=== PATIENT | male | born 1955 | race Caucasian/White ===

== ENCOUNTER 2019-06-01 20:10 | Observation (INO) ==
[2019-06-01] MEDS ORDERED: Sodium Chloride 0.9% 1,000 ML PRIMARY IV ONE (20:26)
[2019-06-01] MEDS ORDERED: ASPIRIN 81 MG (BABY) CHEWABLE TABLET PO ONE (20:26)
--- NOTE | 2019-06-01 20:29 | EKG ---
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
[2019-06-01 20:35] LABS: BASOPHILS # (AUTO) 0.04 10*3/UL; BASOPHILS % (AUTO) 0.3 % (0-1); EOSINOPHILS # (AUTO) 0.21 10*3/UL; EOSINOPHILS % (AUTO) 1.6 % (0-8); Hematocrit [HCT] 40.5 % (42.0-52.0); Hemoglobin [HGB] 13.8 g/dL (14.0-18.0); LYMPHOCYTES # (AUTO) 2.05 10*3/uL; MEAN CORPUSCULAR HGB CONC 34.1 g/dL (33-37); MEAN CORPUSCULAR VOLUME 91.8 FL (80-90); MEAN PLATELET VOLUME 8.5 FL (7.4-12.2); MONOCYTES # (AUTO) 1.08 10*3/UL (0.3-0.8); MONOCYTES % (AUTO) 8.4 % (5-15); NEUTROPHILS # (AUTO) 9.43 10*3/UL; NEUTROPHILS % (AUTO) 72.9 % (50-80); PLATELET MORPHOLOGY COMMENT NORMAL MORPHOLOGY (NORM); RBC MORPHOLOGY COMMENT NORMAL MORPHOLOGY (NORM); RED BLOOD COUNT 4.41 10^6/uL (4.70-6.10); WBC MORPHOLOGY COMMENT NORMAL MORPHOLOGY (NORM)
[2019-06-01] MEDS: NITROGLYCERIN 0.4 MG SL TAB (BOTTLE OF 3) SL PRN ×2 (20:35→20:53)
[2019-06-01 20:40] LABS: BLOOD UREA NITROGEN 17 mg/dL (7-22); BUN/CREATININE RATIO 18.88 (6-20); SERUM ALBUMIN 4.7 g/dL (3.5-4.8)
[2019-06-01 22:10] LABS: VENOUS PCO2 39.3 mmHg (45-55); VENOUS PH 7.41 (7.32-7.42)
[2019-06-01] MEDS ORDERED: LIDOCAINE W/ SODIUM BICARB 0.5 ML SYR SUBD PRN (22:23)
[2019-06-01] MEDS ORDERED: CALCIUM CARBONATE 500 MG (TUMS) CHEWABLE TABLET PO PRN (22:23)
[2019-06-01] MEDS ORDERED: NITROGLYCERIN 0.4 MG SL TAB (BOTTLE OF 3) SL PRN (22:23)
--- NOTE | 2019-06-01 23:05 | PDOC ---
HPI - History of Present Illness Date of Service: 06/01/19 Time of Service: 22:58 Chief Complaint: Chest pain History of Present Illness: Very pleasant 63-year-old male with obesity, known coronary artery disease status post stent about a year and a half ago with myocardial infarction, hypertension, who states that he developed chest pain earlier today in [facility]. 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 He lifted another one and felt short of breath and then went to sit in his cab and he felt a little better. He develops sharp chest pain at that time and it was substernal in nature. At first he thought it might be related to a tooth that he thinks is bad in his mouth but he was planning on doing with that in June. He states that that tooth pain has been sometimes radiating into his neck and he thought the pain might be coming into his chest. As he was driving back towards [place], the pain persisted and it was bad enough that he thought maybe it could be something else became in for evaluation. He was given 2 doses of nitroglycerin and his pain has improved but has not completely relieved. Initial EKG showed a left bundle branch block with T-wave inversions. I am told that there are some records from the patient's [facility] in [place], [place], where he had a stent placed, but I do not have those available for review. Apparently hi s EKG was unchanged per my discussion with the emergency room physician, but again those records have not been provided to me. His initial troponin was negative. Despite a normal d-dimer, the patient has high to intermediate risk for pulmonary emboli by risk stratification score sent a CT scan of the chest was not done in the emergency room. He states his felt short of breath. He states he was not quite diaphoretic with this like he was with his first heart attack. No nausea or vomiting. He does have hypertension, he does not smoke. Has positive family history for heart disease, he does not know his cholesterol status, and he does not have diabetes. Incidentally, the patient also states to me that he's had some swelling in his lower extremities over the past couple of months which he is attributing to dependent edema as his legs seem to be less swollen when he props them up at night. The edema seems to get worse when he is driving truck. He notices blood pressures were elevated in the 190s systolic in [place], [place]. He apparently had some word finding problems as well and was repetitive according to his daughter. He denied any facial droop or weakness on one side or the other. Past Medical History Medical History: 1. Obesity. 2. Hypertension. 3. Coronary artery disease status post stent with myocardial infarction in February 2018. 4. Surgical History: 1. Tonsillectomy. 2. Appendectomy. 3. Stent in heart Past Social History: Does not smoke. Has 6 children. Lives in [place], [place]. 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 Drinks alcohol when he is not driving. Tobacco Use: Never Smoker Do you dip or chew tobacco: Yes In the Past 12 Months, Have Used or Abuse Any of the Following Substance: None Alcohol Use: Occasionally Medication / Allergies Home Medications: Home Medications Medication Instructions Recorded Confirmed Amlodipine Besylate 10 mg PO DAILY 06/01/19 06/01/19 Aspirin [Aspir 81] 81 mg PO DAILY 06/01/19 06/01/19 Carvedilol 6.25 mg PO BID 06/01/19 06/01/19 Lisinopril 20 mg PO DAILY 06/01/19 06/01/19 Spironolactone 25 mg PO DAILY 06/01/19 06/01/19 Allergies/Adverse Reactions: Allergies Allergy/AdvReac Type Severity Reaction Status Date / Time No Known Allergies Allergy Verified 06/01/19 22:33 Review of Systems - Review of Systems All Systems: Reviewed & No Additional Complaints Except as Stated (I did a 12 point review systems and it was negative other than that discussed below and in the history of present illness.) - Constitutional Constitutional: REPORTS: Weight Gain (Has gained about 25 pounds in the last year and a half.) - Respiratory Respiratory: REPORTS: Dyspnea with Exertion, Pleuritic Pain - Cardiovascular Cardiovascular: REPORTS: See HPI - Musculoskeletal Musculoskeletal: REPORTS: Other (Has chronic wrist pain that he attributes to possible carpal tunnel syndrome. Also stated he had about a 5 month history of right shoulder pain attributed to moving cattle) Exam - Vitals Vital Signs: Vital Signs Temperature 97.7 F Temperature Source Temporal Artery Scan Pulse Rate [Pulse Oximeter] 79 Pulse Rate 84 Respiratory Rate 20 Blood Pressure [Right Arm] 132/78 Blood Pressure 121/76 Pulse Ox 92 Oxygen Delivery Method Room Air Height 5 ft 8 in Weight 265 lb 12.8 oz - General General Appearance: No Acute Distress, Cooperative, Obese - Head Head Exam: Normal Inspection, Normocephalic, Atraumatic - Eye Eye Exam: POSITIVE: No Scleral Icterus - ENT ENT Exam: POSITIVE: Mucous Membranes Moist - Neck Neck Exam: Normal Inspection, No Tenderness, No Lymphadenopathy, No Thyromegaly, JVP is not Raised - Respiratory Respiratory Exam: POSITIVE: Clear to Auscultation - Bilaterally, Breathing Non Labored, Normal to Percussion and Palpation - Cardiovascular Cardiovascular Exam: POSITIVE: RRR, No Murmur, No Clicks, No Gallops, No Rubs, No JVD - GI/Abdominal GI/Abdominal Exam: POSITIVE: Normal Bowel Sounds, Non Tender, Non Distended, Soft - Rectal Rectal Exam: POSITIVE: Deferred - External Exam: POSITIVE: Deferred Exam: POSITIVE: Deferred - Extremities Extremities Exam: POSITIVE: No Clubbing Present, No Cyanosis Present, +1 Edema - Neurological Neurological Exam: POSITIVE: Alert, Oriented x 3, CN II-XII Intact, No Facial Droop, Speech Intact / Clear, Moves All Extremities Equally - Psychiatric Psychiatric Exam: POSITIVE: Normal Affect, Normal Mood Results - Labs CBC and BMP: 06/01/19 20:15 06/01/19 20:18 Additional Lab Results: Laboratory Results 06/01/19 06/01/19 06/01/19 20:15 20:18 20:18 WBC 12.93 H RBC 4.41 L Hgb 13.8 L Hct 40.5 L MCV 91.8 H MCH 31.3 H MCHC 34.1 RDW Std Deviation 40.8 RDW Coeff of [place] 12.5 Plt Count 264 MPV 8.5 Immature Gran % (Auto) 0.9 Neut % (Auto) 72.9 Lymph % (Auto) 15.9 [place] % (Auto) 8.4 Eos % (Auto) 1.6 Baso % (Auto) 0.3 Immature Gran # (Auto) 0.12 Neut # (Auto) 9.43 Lymph # (Auto) 2.05 [place] # (Auto) 1.08 H Eos # (Auto) 0.21 Baso # (Auto) 0.04 WBC Morphology Comment Normal morphology Plt Morphology Comment Normal morphology RBC Morph Comment Normal morphology D-Dimer 233 VBG pH VBG pCO2 VBG HCO3 VBG Base Excess Sodium 135 Potassium 4.3 Chloride 100 Carbon Dioxide 25 Anion Gap 10 BUN 17 Creatinine 0.9 Estimated GFR > 60 BUN/Creatinine Ratio 18.88 Glucose 117 H Calculated Osmolality 282.0 Calcium 10.1 Total Bilirubin 0.4 AST 31 ALT 41 Alkaline Phosphatase 74 CK-MB (CK-2) Troponin I Total Protein 8.3 H Albumin 4.7 Globulin 3.6 Albumin/Globulin Ratio 1.30 06/01/19 06/01/19 06/01/19 20:18 20:18 20:20 WBC RBC Hgb Hct MCV MCH MCHC RDW Std Deviation RDW Coeff of [place] Plt Count MPV Immature Gran % (Auto) Neut % (Auto) Lymph % (Auto) [place] % (Auto) Eos % (Auto) Baso % (Auto) Immature Gran # (Auto) Neut # (Auto) Lymph # (Auto) [place] # (Auto) Eos # (Auto) Baso # (Auto) WBC Morphology Comment Plt Morphology Comment RBC Morph Comment D-Dimer VBG pH 7.41 VBG pCO2 39.3 L VBG HCO3 24.8 VBG Base Excess 0 Sodium Potassium Chloride Carbon Dioxide Anion Gap BUN Creatinine Estimated GFR BUN/Creatinine Ratio Glucose Calculated Osmolality Calcium Total Bilirubin AST ALT Alkaline Phosphatase CK-MB (CK-2) 0.84 Troponin I < 0.012 Total Protein Albumin Globulin Albumin/Globulin Ratio - EKG Data -: EKG Interpreted by Me Rate: Normal EKG Shows Normal: Sinus Rhythm - EKG Data EKG Interpretation: Other (Has a left bundle branch block with some nonspecific ST changes or T-wave inversions.) - Imaging Status: Image Reviewed by Me (Chest x-ray, on my view, is negative. I have ordered a CTA of the chest to look for pulmonary emboli and also a head CT scan given the word finding and repetitive sentences problem the patient had as well today.) Assessment and Plan - Patient Problems (1) Chest pain Current Visit: Yes Status: Acute Code(s): R07.9 - Chest pain, unspecified Qualifiers: Chest pain type: chest pain on breathing Qualified Code(s): R07.1 - Chest pain on breathing; R07.81 - Pleurodynia (2) Coronary artery disease Current Visit: Yes Status: Acute Code(s): I25.10 - Atherosclerotic heart disease of [place] coronary artery without angina pectoris Qualifiers: Coronary Disease-Associated Artery/Lesion type: [place] artery [place] vs. transplanted heart: [place] heart Associated angina: with unspecified angina Qualified Code(s): I25.119 - Atherosclerotic heart disease of [place] coronary artery with unspecified angina pectoris (3) Hypertension Current Visit: Yes Status: Acute Code(s): I10 - Essential (primary) hypertension Qualifiers: Hypertension type: essential hypertension Qualified Code(s): I10 - Essential (primary) hypertension (4) Obesity Current Visit: Yes Status: Acute Code(s): E66.9 - Obesity, unspecified Qualifiers: Obesity type: unspecified obesity type Obesity classification: adult class 3 (BMI >= 40) Serious obesity comorbidity presence: with serious comorbidity Body mass index: BMI 40.0-44.9 Qualified Code(s): E66.01 - Morbid (severe) obesity due to excess calories; Z68.41 - Body mass index (BMI) 40.0-44.9, adult - Assessment / Plan Additional Assessment/Plan Details: Plan: 1. Do serial enzymes, and I written those for every 6 hours 2 2. Aspirin daily. 3. I will continue the patient's Coreg 4. I'm very concerned about the nature of the sharp chest pain worse with breathing. I will go ahead and get a CTA of the chest. The patient is not in a low risk category and cannot clinically be ruled out with a simple D-dimer test. 5. We'll have the patient do a stress test chemical given the left bundle branch block and prior history 6. I will order an echocardiogram. We have techs available on Wednesday and Wednesday only, I have been told that it may be possible that the echocardiogram field support technician might not be here tomorrow but I do not know that at this point 5. Nitroglycerin when necessary for chest pain 6. If the patient's pain persists, even if troponins are negative, we may need to consider transfer to a facility for unstable angina. I will dose him with Lovenox 1 mg/kg at this point 7. Oxygen if necessary 8. Get a head CT scan with description of word finding problems and hyperte nsion that the patient described to me earlier. He does not have other physical signs or symptoms of stroke. In other words, he does not have any focal findings, slurred speech, or facial droop. I will write for an MRI scan of the brain tomorrow as well. 9. Very complex presentation of chest pain in a patient with known coronary artery disease, prior history of stent, and wide differential. 10. I did discuss the plan with the patient, his daughter, and his son-in-law and they all agreed to proceed as discussed. In addition, their questions were answered at bedside.
[2019-06-02] MEDS ORDERED: MORPHINE SULFATE 2 MG/1 ML IVP ONE (00:52)
[2019-06-02] MEDS ORDERED: Nitroglycerin Drip 25,000 MCG/250 ML BOTTLE IV SCH (02:15)
[2019-06-02] MEDS ORDERED: CALCIUM CARBONATE 500 MG (TUMS) CHEWABLE TABLET PO ONE (02:21)
--- NOTE | 2019-06-02 02:24 | EKG ---
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
[2019-06-02] MEDS: ENOXAPARIN SODIUM 120 MG/0.8 ML SYRINGE SUBCUT SCH ×2 (02:33→12:13)
--- NOTE | 2019-06-02 04:30 | PDOC ---
Chest Pain HPI - General Chief Complaint: Chest Pain Stated Complaint: CHEST PAIN Date Seen by Provider: 06/01/19 Time Seen by Provider: 20:15 Source: Patient, Other (daughter) Exam Limitations: POSITIVE: No limitations Treatment Prior to Arrival: REPORTS: None Nurse's Notes Reviewed & Considered: Yes - History of Present Illness Initial Comments: The patient is a 63-year-old male. Patient presents to the emergency room with a 4 hour history of midsternal chest pain. Patient states he had a "heart attack" in February 2018 in [place] and had a coronary artery stent at that time. Patient has a history of hypertension and he takes spiral galactogram, carvedilol, Center Opal and amlodipine. He also takes one baby aspirin daily. He smoked up until 2005. Patient rates the intensity of the pain as a 6 or 7 on a scale of 10 and describes it care per the pain as a "ache". He does states he is feels a little short of breath. No radiation. No diaphoresis. No nausea, vomiting or other GI or symptoms. 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) Severity: Moderate Persistent/Worse since (date): 06/01/19 Persistent/Worse since (time): 16:00 Context: REPORTS: Activity (Driving a cattle truck) Quality: REPORTS: Aching, "Pain" Radiation: REPORTS: None Associated Symptoms: REPORTS: Shortness of Breath Modifying Factors: improves with: None Reported Similar Symptoms Previously: Yes Recently seen/treated/hospitalized: Yes (treated for non-STEMI February 2018) Any Prior Injuries Related to Current Complaint?: No - Patient Home Medications Home Medications: Home Medications Amlodipine Besylate 10 mg PO DAILY 06/01/19 Aspirin [Aspir 81] 81 mg PO DAILY 06/01/19 Carvedilol 6.25 mg PO BID 06/01/19 Lisinopril 20 mg PO DAILY 06/01/19 Spironolactone 25 mg PO DAILY 06/01/19 - Patient Allergies Allergies/Adverse Reactions: Allergies Allergy/AdvReac Type Severity Reaction Status Date / Time No Known Allergies Allergy Verified 06/01/19 22:33 Past Medical History - heen HEENT History: Denies History Cardiovascular History: Hypertension, Previous HI Respiratory History: Denies History Gastrointestinal History: Denies History Genitourinary History: Denies History Endocrine History: Denies History Musculoskeletal History: Denies History Neurological History: Denies History Blood Disorders: Denies History Psychiatric History: Denies History History of Sexually Transmitted Diseases: No Male Reproductive History: Denies History Cancer History: Denies History In Past Year Been Physically Harmed or Verbally Threatened: No History of MDRO: No History of Other Communicable Diseases: No Tobacco Use: Never Smoker In the Past 12 Months, Have Used or Abuse Any Substance: None Previous Surgical History: Yes Type / Date of Surgery: CARDIAC STENT, APPY, CYST REMOVED FROM THYROID Anesthesia Reactions: No Malignant Hyperthermia: No Family History of Malignant Hyperthermia: No Significant Family History: No pertinent family hx Past Medical History Reviewed: Reviewed - No Changes ROS - Limitations ROS Limitations: No Limitations Constitution: REPORTS: Denies Symptoms Cardiovascular: REPORTS: Chest Pain Respiratory: REPORTS: Shortness Of Breath Neurological: REPORTS: Denies Neuro Symptoms Gastrointestinal: REPORTS: Denies GI Symptoms Endocrine: REPORTS: Denies Symptoms Musculoskeletal: REPORTS: Denies MS Symptoms Genitourinary: REPORTS: Denies Symptoms ENT: REPORTS: Denies Symptoms Skin: REPORTS: Denies Skin Symptoms Lympathic: REPORTS: Denies Lympathic Symptoms Immunologic: POSITIVE: Denies Symptoms Psychiatric: POSITIVE: Denies Psych Symptoms Chest Pain PE - General Appearance General Appearance: REPORTS: Alert, Cooperative, No Acute Distress, No Evidence of Trauma - HEENT HEENT: POSITIVE: Head Inspection Nml, Eyes Inspection Nml, Ears Inspection Nml, Nose Inspection Nml, Oral/Dental Inspect. Nml, Pharynx Inspect. Nml, PERRL, EOMI - Neck Neck: REPORTS: Normal Inspection, No Carotid Bruit - Respiratory Respiratory: REPORTS: No Respiratory Distress, Breath Sounds Normal, Chest Non- Tender - Cardiovascular Cardiovascular: REPORTS: Regular Rate and Rhythm, Heart Sounds Normal, Equal Pulses, Strong Pulses, No Murmur, No Gallop, No Friction Rub, No JVD Peripheral Pulses: Radial (R): 2+, Radial (L): 2+ - Abdomen Abdomen: Soft: (All Quadrants), Normal Bowel Sounds: (All Quadrants), Denies Tenderness: (All Quadrants), No Splenomegaly: (All Quadrants), No Hepatomegaly: (All Quadrants), No Guarding: (All Quadrants), No Rebound: (All Quadrants), No Palpable Pulse: (All Quadrants), No Palpabale Mass: (All Quadrants), No Distention: (All Quadrants), No Rigidity: (All Quadrants) - Skin Skin: REPORTS: Intact, Normal For Race, Warm, Dry, No Rash - Extremities Extremity: Non-Tender: (All Extremities), Normal ROM: (All Extremities), Normal Inspection: (All Extremities) - Neurological / Psychological Neurological: POSITIVE: Affect Apporpriate, Oriented X3, brush or broom cutter Normal As Tested, Motor Normal, Sensation Normal Images - Complete Complete: 1 - Area of described pain Chest Pain Progress - Results Reviewed by me Xrays/CTs/US Reviewed by me: Yes Discussed with Radiologist: No Radiology Findings: Portable chest x-ray normal by my reading; radiologist reading pending Lab Results Reviewed by Me: Yes CBC and BMP: 06/01/19 20:15 06/01/19 20:18 Lab Results:: Laboratory Results 06/01/19 06/01/19 06/01/19 20:15 20:18 20:18 WBC 12.93 H RBC 4.41 L Hgb 13.8 L Hct 40.5 L MCV 91.8 H MCH 31.3 H MCHC 34.1 RDW Std Deviation 40.8 RDW Coeff of [place] 12.5 Plt Count 264 MPV 8.5 Immature Gran % (Auto) 0.9 Neut % (Auto) 72.9 Lymph % (Auto) 15.9 [place] % (Auto) 8.4 Eos % (Auto) 1.6 Baso % (Auto) 0.3 Immature Gran # (Auto) 0.12 Neut # (Auto) 9.43 Lymph # (Auto) 2.05 [place] # (Auto) 1.08 H Eos # (Auto) 0.21 Baso # (Auto) 0.04 WBC Morphology Comment Normal morphology Plt Morphology Comment Normal morphology RBC Morph Comment Normal morphology D-Dimer 233 VBG pH VBG pCO2 VBG HCO3 VBG Base Excess Sodium 135 Potassium 4.3 Chloride 100 Carbon Dioxide 25 Anion Gap 10 BUN 17 Creatinine 0.9 Estimated GFR > 60 BUN/Creatinine Ratio 18.88 Glucose 117 H Calculated Osmolality 282.0 Calcium 10.1 Total Bilirubin 0.4 AST 31 ALT 41 Alkaline Phosphatase 74 CK-MB (CK-2) Troponin I Total Protein 8.3 H Albumin 4.7 Globulin 3.6 Albumin/Globulin Ratio 1.30 06/01/19 06/01/19 06/01/19 20:18 20:18 20:20 WBC RBC Hgb Hct MCV MCH MCHC RDW Std Deviation RDW Coeff of [place] Plt Count MPV Immature Gran % (Auto) Neut % (Auto) Lymph % (Auto) [place] % (Auto) Eos % (Auto) Baso % (Auto) Immature Gran # (Auto) Neut # (Auto) Lymph # (Auto) [place] # (Auto) Eos # (Auto) Baso # (Auto) WBC Morphology Comment Plt Morphology Comment RBC Morph Comment D-Dimer VBG pH 7.41 VBG pCO2 39.3 L VBG HCO3 24.8 VBG Base Excess 0 Sodium Potassium Chloride Carbon Dioxide Anion Gap BUN Creatinine Estimated GFR BUN/Creatinine Ratio Glucose Calculated Osmolality Calcium Total Bilirubin AST ALT Alkaline Phosphatase CK-MB (CK-2) 0.84 Troponin I < 0.012 Total Protein Albumin Globulin Albumin/Globulin Ratio EKG Interpreted/Reviewed By Me:: Yes (left bundle-branch block; seen on previous electrocardiogram, February 2018) EKG Interpretation:: POSITIVE: Normal Sinus Rhythm, Normal Rate, Abnormal EKG, Unchanged (Electrocardiogram and medical records obtained from [place] referable to his non-STEMI February 2018; patient had a left bundle-branch block at that time.). NEGATIVE: Normal Intervals (Left bundle-branch block), Normal [place] (Left bundle-branch block), Normal QRS (Left bundle-branch block), Normal ST/T (Left bundle-branch block) - Patient's Progress Pain Medication Addressed: POSITIVE: Yes (Patient given nitroglycerin sublingually 2 with good relief of pain) School/Work Release Addressed: POSITIVE: Not Applicable Re-Examine Time: 22:10 Re-Examine Comment: Patient feels better on discharge. Results electrocardiogram, chest x-ray and laboratory studies reviewed with patient and patient's daughter. Case discussed with hospitalist on-call, Dr. Wilkinson. Patient is admitted for further evaluation and treatment. Status: POSITIVE: Improved, Re-Examined Quality Measure Initiative: CP/AMI: POSITIVE: EKG, ASA - Consult Consult (If Yes, Name of Consulting MD & Time Called): Yes (Dr. Wilkinson, hospitalist, [id number]) Consulting MD will see pt:: POSITIVE: [place] Admit Counseled: POSITIVE: Patient, Family (Daughter), RE: Lab Results, RE: Radiology Results, RE: DX, RE: Need for F/U Patient Care Time - Estimated PCT Patient Care Time (In Minutes): 45 Vital Signs - VS Reviewed Vital Signs Reviewed: Yes Discharge Clinical Impression: Chest pain Discharge Disposition: Admit to Inpatient Condition: Stable Patient Problem(s) Reviewed: Yes Date Decision to Admit to Inpatient: 06/01/19 Time Decision to Admit to Inpatient: 22:10
[2019-06-02 08:43] LABS: CHOL/HDL RATIO 4.22 RATIO (0-4.0)
[2019-06-02] MEDS ORDERED: ASPIRIN 81 MG (BABY) CHEWABLE TABLET PO SCH (09:00)
[2019-06-02] MEDS: Spironolactone Tab 25 MG TAB PO SCH ×3 (09:46→12:18)
[2019-06-02] MEDS: ASPIRIN EC 81 MG TABLET PO SCH ×3 (09:46→12:18)
[2019-06-02] MEDS: CARVEDILOL 6.25 MG TABLET PO SCH ×2 (09:48→20:38)
[2019-06-02] MEDS: LISINOPRIL 20 MG TABLET PO SCH ×2 (09:49→18:01)
--- NOTE | 2019-06-02 11:29 | STRESSTEST ---
[place] 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 Chest pain was exertional on history. resting EKG has T wave inversions in I, aVL, precordial leads, left bundle branch block, stressed with Mirna scan protocol. had SOB that resolved. Plan: stress images today, rest images tomorrow, radiology to read. continue workup in hypertensive crisis differential as well. [id number]
--- NOTE | 2019-06-02 13:51 | DI ---
MRI MRA Head WO Contrast,06/02/2019 6:10 AM: Clinical History: Expressive aphasia. Previous Exam: None at this facility. Findings: Multiplanar MR images are obtained through the [place] following a 3-D [id number] protoc ol, and demonstrate normal distal internal carotid arteries. The distal vertebral arteries are normal. The basilar artery is unremarkable. The posterior cerebral arteries are normal. The middle cerebral arteries are normal. The anterior cerebral arteries are normal. The anterior communicating artery is normal. Posterior communicating arteries are not seen on this exam. Impression: Normal MRA [place].
[2019-06-02] MEDS: MORPHINE SULFATE 2 MG/1 ML IVP PRN (15:32)
--- NOTE | 2019-06-02 16:21 | DI ---
CT CTA Chest Non-Coronary WWO,06/01/2019 11:50 PM: Clinical History: Chest pain and shortness of breath Previous Exam: None at this facility. Findings: Multiple helically acquired CT images are obtained through the chest following the intravenous minist ration of 76 mL of Omnipaque 300. The upper abdomen is unremarkable. There is diffuse fatty infiltration of the liver. The thyroid is normal. The aortic arch is normal. Pulmonary arteries are normal without filling defec t or truncation to suggest pulmonary embolism. There is no filling defect or truncation to suggest pulmonary embolism. Pulmonary arteries are normal. The vertebral arteries are also normal. Mild degenerative changes of thoracic spine are noted. The sternum is normal. Impression: 1. No evidence of pulmonary embolism. 2. Mild degenerative changes of the thoracic spine.
--- NOTE | 2019-06-02 16:21 | DI ---
MRI Brain WO Contrast,06/02/2019 6:35 AM: Clinical History: Expressive aphasia Previous Exam: CT head and MRA performed on the same date. Findings: Multiplanar MR images are obtained through the brain without contrast, and demonstrate normal, symmet andrade ventricles and other CSF containing spaces. There is no mass, hemorrhage or midline shift. The joel rrounding soft tissue and osseous structures are unremarkable. The sella and parasellar region is unr emarkable. There is no Chiari malformation. There is no abnormally restricted diffusion. There is motion artifact which limits evaluation of the FLAIR images, but there is no abnormal FLAIR signal identified. The cerebellopontine angles and internal auditory canals are normal. The intraorbital structures and paranasal sinuses are unremarkable. Impression: Normal MRI brain for age.
--- NOTE | 2019-06-02 16:31 | DI ---
CT Head WO Contrast,06/01/2019 11:50 PM: Clinical History: Problems finding words. Previous Exam: None at this facility. Findings: Multiple helically acquired CT images are obtained through the brain without contrast, and demonstrat e normal, symmetric ventricles and other CSF containing spaces. There is no mass, hemorrhage nor midl ine shift. Surrounding soft tissue and osseous structures are unremarkable. Impression: Normal CT head.
[2019-06-02] MEDS ORDERED: PANTOPRAZOLE 40 MG TABLET PO ONE (16:43)
--- NOTE | 2019-06-02 16:43 | PDOC(PROG) ---
Date of Service: 06/02/19 Time of Service: 16:39 Interval History: Patient seen, evaluated earlier. No further chest pain after nitroglycerin drip. Has been off intermittently through the day. No shortness of breath. No nausea or vomiting. Objective : Data - Labs CBC and BMP: 06/01/19 20:15 06/01/19 20:18 Additional Lab Results: 06/01/19 06/02/19 06/02/19 20:18 00:50 07:05 Troponin I < 0.012 < 0.012 Triglycerides 263 H Cholesterol 148 LDL Cholesterol, Calc 60.400 VLDL Cholesterol 52 H HDL Cholesterol 35 L Cholesterol/HDL Ratio 4.22 H TSH Free T4 06/02/19 06/02/19 07:05 07:05 Troponin I < 0.012 Triglycerides Cholesterol LDL Cholesterol, Calc VLDL Cholesterol HDL Cholesterol Cholesterol/HDL Ratio TSH 4.46 H Free T4 0.88 L - EKG Data -: EKG Interpreted by Ms Rate: Normal EKG Shows Normal: Sinus Rhythm - EKG Data EKG Interpretation: Nonspecific ST-T Wave Changes (Patient has left bundle branch block that is unchanged, T-wave inversions in 1 and aVL and V5 and V6 that appear unchanged.) Objective : Exam - General General Appearance: No Acute Distress, Cooperative Additional General Exam Details: Vital Signs - Last Taken Temperature 97.6 F 06/02/19 15:02 Pulse Rate 73 06/02/19 15:02 Respiratory Rate 17 06/02/19 15:02 Blood Pressure 144/82 06/02/19 15:02 Pulse Ox 95 06/02/19 15:02 - Eye Eye Exam: No Scleral Icterus - ENT ENT Exam: Mucous Membranes Moist - Neck Neck Exam: JVP is not Raised - Respiratory Respiratory Exam: Clear to Auscultation - Bilaterally, Breathing Non Labored - Cardiovascular Cardiovascular Exam: RRR, No Murmur, No Clicks, No Gallops, No Rubs, No JVD - GI/Abdominal GI/Abdominal Exam: Normal Bowel Sounds, Non Tender, Non Distended, Soft - Extremities Extremities Exam: No Clubbing Present, No Cyanosis Present, +1 Edema - Neurological Neurological Exam: Alert, Oriented x 3, No Facial Droop, Speech Intact / Clear, Moves All Extremities Equally Assessment and Plan - Patient Problems (1) Chest pain Current Visit: Yes Status: Acute Code(s): R07.9 - Chest pain, unspecified Qualifiers: Chest pain type: chest pain on breathing Qualified Code(s): R07.1 - Chest pain on breathing; R07.81 - Pleurodynia (2) Coronary artery disease Current Visit: Yes Status: Acute Code(s): I25.10 - Atherosclerotic heart disease of [place] coronary artery without angina pectoris Qualifiers: Coronary Disease-Associated Artery/Lesion type: [place] artery [place] vs. tr ansplanted heart: [place] heart Associated angina: with unspecified angina Qualified Code(s): I25.119 - Atherosclerotic heart disease of [place] coronary artery with unspecified angina pectoris (3) Hypertension Current Visit: Yes Status: Acute Code(s): I10 - Essential (primary) hypertension Qualifiers: Hypertension type: essential hypertension Qualified Code(s): I10 - Essential (primary) hypertension (4) Obesity Current Visit: Yes Status: Acute Code(s): E66.9 - Obesity, unspecified Qualifiers: Obesity type: unspecified obesity type Obesity classification: adult class 3 (BMI >= 40) Serious obesity comorbidity presence: with serious comorbidity Body mass index: BMI 40.0-44.9 Qualified Code(s): E66.01 - Morbid (severe) obesity due to excess calories; Z68.41 - Body mass index (BMI) 40.0-44.9, adult (5) Hypertriglyceridemia Current Visit: Yes Status: Acute Code(s): E78.1 - Pure hyperglyceridemia (6) Hypothyroidism Current Visit: Yes Status: Acute Code(s): E03.9 - Hypothyroidism, unspecified Qualifiers: Hypothyroidism type: acquired Qualified Code(s): E03.9 - Hypothyroidism, unspecified - Assessment / Plan Additional Assessment/Plan Details: On review of labs, the patient has hypertriglyceridemia, I don't see that he is on statin therapy. He also has hypothyroidism. I will start Synthroid and also start Lipitor. We did stress portion of stress test today. Mirna scan Rest portion will be tomorrow. Unfortunately, no ability to do echocardiogram today. Brain MRI and MRA of head appeared normal and no evidence of stroke. We will get an MRA of the neck to evaluate carotids today. The patient's right shoulder is still quite painful. I think he needs further evaluation will get an x-ray that try to arrange an orthopedic follow-up. Continue telemetry monitoring. Stop nitroglycerin drip for now. Resume if chest pain recurs. Continue beta martina, Lovenox, CARIE inhibitor, aspirin. Start Protonix. I suspect that the patient may have had esophageal spasm causing this pain.
[2019-06-02] MEDS ORDERED: ATORVASTATIN 40 MG TABLET PO SCH (21:00)
[2019-06-03] MEDS ORDERED: LEVOTHYROXINE 50 MCG TABLET PO SCH (05:30)
[2019-06-03] MEDS ORDERED: PANTOPRAZOLE 40 MG TABLET PO SCH (07:00)
[2019-06-03] MEDS: Spironolactone Tab 25 MG TAB PO SCH (08:10)
[2019-06-03] MEDS: ASPIRIN EC 81 MG TABLET PO SCH (08:11)
[2019-06-03 09:26] VITALS: RESP 20
[2019-06-03] MEDS: ENOXAPARIN SODIUM 120 MG/0.8 ML SYRINGE SUBCUT SCH ×2 (11:12)
[2019-06-03] MEDS: MORPHINE SULFATE 2 MG/1 ML IVP PRN (12:17)
[2019-06-03 13:09] VITALS: BP 147/80; TEMP 98.8; O2SAT 96
[2019-06-03] MEDS: CARVEDILOL 6.25 MG TABLET PO SCH (13:10)
[2019-06-03] MEDS: LISINOPRIL 20 MG TABLET PO SCH (13:10)
[2019-06-03] MEDS ORDERED: TICAGRELOR 90 MG PO ONE (16:53)
--- NOTE | 2019-06-03 16:53 | DCSUMMARY ---
Hospitalization Summary Admit Date: 06/01/2019 Discharge Date: 06/03/19 Primary Diagnosis:: unstable angina Hospital Course: This is a very pleasant 63-year-old male that presented with chest pain that sounded exertional based on his history. We admitted him, he ruled out for myocardial infarction. He had symptoms that suggested possible hypertensive crisis and/or possible TIA versus stroke. We did MRI scans which were negative. Do not have the MRA of his carotids, in terms of the results, but it was done yesterday. His MRA of his head was negative and he had no evidence of stroke on brain MRI scan. His blood pressure come down with nitroglycerin as did his chest pain and it resolved during the hospital stay. He completed a Lexiscan stress test and it was positive for ischemic findings. I spoke with Dr. Jiménez at [facility] here and he graciously accepted the patient for continued cardiac workup. Prior to leaving we will load him with Brilinta. He has been on Lovenox a milligram per kilogram twice a day. He is also on Coreg and is on aspirin daily. We started him on high-dose statin therapy. I discussed the above results with the patient and he is willing to go to [facility] for further evaluation. The patient does have left shoulder pain and an x-ray appeared to me to be negative. I think he should visit with orthopedics post hospital stay depending on how his cardiac workup turns out. Incidentally, we did find that the patient has hypertriglyceridemia, his LDLs are around 60. We started him on high-dose statin therapy. We also found hypothyroidism and started him on Synthroid at 50 g daily. A CTA of the chest was negative for pulmonary emboli. I did not feel a d-dimer would be adequate for this patient given his initial presentation was shortness of breath and pleuritic pain. I felt he was at minimum, intermediate risk for pulmonary emboli. Again, the CT scan was negative. Assessment and Plan: 1. As per discharge assessments noted 2. Disposition: Patient is discharged to [facility] 3. Condition on discharge, stable, but with unstable angina, his condition certainly could deteriorate. 4. Diet: regular diet 5. Activities: Per physicians at [facility] 6. Follow-Up: 1. We will try to arrange for him to follow with Dr. Neice upon discharge he will need follow-up within the next 4-6 weeks to retest his thyroid function 2. Orthopedics 7. Medications at the Time of Discharge: Active Medications Generic Name Dose Route Start Last Admin Trade Name Joshua PRN Reason Stop Dose Admin Amlodipine Besylate 10 mg 06/02/19 09:00 06/03/19 13:10 Norvasc PO 10 mg DAILY NILSON Administration Aspirin 81 mg 06/02/19 09:00 06/03/19 08:11 Aspirin Ec PO 81 mg DAILY NILSON Administration Atorvastatin Calcium 80 mg 06/02/19 21:00 06/02/19 20:37 Lipitor PO 80 mg BEDTIME NILSON Administration Calcium Carbonate 1 - 2 tab 06/01/19 22:23 Tums PO QID PRN Heartburn Carvedilol 6.25 mg 06/02/19 09:00 06/03/19 13:10 Coreg PO 6.25 mg BID NILSON Administration Enoxaparin Sodium 120 mg 06/01/19 23:30 06/03/19 11:12 Lovenox Inj SUBCUT 120 mg Q12H NILSON Administration Sodium Chloride 25 mls @ 200 mls/hr 06/01/19 22:23 Normal Saline 0.9% IV .Post Infusion PRN Flush Levothyroxine Sodium 50 mcg 06/03/19 05:30 06/03/19 08:11 Synthroid PO 50 mcg DAILY@0530 NILSON Administration Lidocaine HCl 0.5 ml 06/01/19 22:23 Lidocaine Buffered Inj SUBD ONCE PRN IV Starts Lisinopril 20 mg 06/02/19 09:00 06/03/19 13:10 Prinivil PO 20 mg DAILY NILSON Administration Morphine Sulfate 2 mg 06/02/19 13:39 06/03/19 12:17 Morphine Inj IVP 2 mg Q4H PRN Administration Pain Nitroglycerin 1 tab 06/01/19 22:23 Nitrostat Sl 0.4mg Tab SL Q5M PRN Chest Pain Pantoprazole Sodium 40 mg 06/03/19 07:00 06/03/19 08:09 Protonix PO 40 mg AC BK NILSON Administration Spironolactone 25 mg 06/02/19 09:00 06/03/19 08:10 Aldactone PO 25 mg DAILY NILSON Administration Ticagrelor 180 mg 06/03/19 16:53 Brilinta PO 09/14/19 16:54 ONCE ONE 8. Time, care, counseling and coordination of care for this discharge is greater than 30 minutes. This report was transcribed using Bread voice recognition. Despite editing, there may be grammatical and/or typographical errors in this recording artist report due to the limitations inherent with voice activated and speech recognition software. Exam - Vitals Vital Signs: Vital Signs Temperature 98.8 F Temperature Source Temporal Artery Scan Pulse Rate [Apical] 74 Pulse Rate [Pulse Oximeter] 73 Pulse Rate [hand] 78 Pulse Rate 67 Respiratory Rate 20 Blood Pressure [Right Arm] 147/80 Blood Pressure 121/76 Pulse Ox [hand] 96 Pulse Ox 96 Oxygen Flow Rate [hand] 1 Oxygen Flow Rate 1 Oxygen Delivery Method [hand] Room Air Oxygen Delivery Method Room Air Height 5 ft 8 in Weight 258 lb 11.2 oz - General General Appearance: No Acute Distress, Cooperative - Head Head Exam: Normal Inspection, Normocephalic, Atraumatic - Eye Eye Exam: POSITIVE: No Scleral Icterus - ENT ENT Exam: POSITIVE: Mucous Membranes Moist - Neck Neck Exam: JVP is not Raised - Respiratory Respiratory Exam: POSITIVE: Clear to Auscultation - Bilaterally, Breathing Non Labored - Cardiovascular Cardiovascular Exam: POSITIVE: RRR, No Murmur, No Clicks, No Gallops, No Rubs, No JVD - GI/Abdominal GI/Abdominal Exam: POSITIVE: Normal Bowel Sounds, Non Tender, Non Distended, Soft - Extremities Extremities Exam: POSITIVE: No Clubbing Present, No Edema Present, No Cyanosis Present - Neurological Neurological Exam: POSITIVE: Alert, Oriented x 3, No Facial Droop, Speech Intact / Clear, Moves All Extremities Equally Data Peritnent Studies: 06/01/19 06/01/19 06/01/19 20:15 20:18 20:18 WBC 12.93 H Hgb 13.8 L Hct 40.5 L Plt Count 264 D-Dimer 233 VBG pH VBG pCO2 VBG HCO3 VBG Base Excess Sodium 135 Potassium 4.3 Chloride 100 Carbon Dioxide 25 Anion Gap 10 BUN 17 Creatinine 0.9 Estimated GFR > 60 BUN/Creatinine Ratio 18.88 Glucose 117 H Calculated Osmolality 282.0 Calcium 10.1 Total Bilirubin 0.4 AST 31 ALT 41 Alkaline Phosphatase 74 CK-MB (CK-2) Troponin I Total Protein 8.3 H Albumin 4.7 Globulin 3.6 Albumin/Globulin Ratio 1.30 Triglycerides Cholesterol LDL Cholesterol, Calc VLDL Cholesterol HDL Cholesterol Cholesterol/HDL Ratio TSH Free T4 06/01/19 06/01/19 06/01/19 20:18 20:18 20:20 WBC Hgb Hct Plt Count D-Dimer VBG pH 7.41 VBG pCO2 39.3 L VBG HCO3 24.8 VBG Base Excess 0 Sodium Potassium Chloride Carbon Dioxide Anion Gap BUN Creatinine Estimated GFR BUN/Creatinine Ratio Glucose Calculated Osmolality Calcium Total Bilirubin AST ALT Alkaline Phosphatase CK-MB (CK-2) 0.84 Troponin I < 0.012 Total Protein Albumin Globulin Albumin/Globulin Ratio Triglycerides Cholesterol LDL Cholesterol, Calc VLDL Cholesterol HDL Cholesterol Cholesterol/HDL Ratio TSH Free T4 06/02/19 06/02/19 06/02/19 00:50 07:05 07:05 WBC Hgb Hct Plt Count D-Dimer VBG pH VBG pCO2 VBG HCO3 VBG Base Excess Sodium Potassium Chloride Carbon Dioxide Anion Gap BUN Creatinine Estimated GFR BUN/Creatinine Ratio Glucose Calculated Osmolality Calcium Total Bilirubin AST ALT Alkaline Phosphatase CK-MB (CK-2) Troponin I < 0.012 Total Protein Albumin Globulin Albumin/Globulin Ratio Triglycerides 263 H Cholesterol 148 LDL Cholesterol, Calc 60.400 VLDL Cholesterol 52 H HDL Cholesterol 35 L Cholesterol/HDL Ratio 4.22 H TSH 4.46 H Free T4 0.88 L 06/02/19 07:05 WBC Hgb Hct Plt Count D-Dimer VBG pH VBG pCO2 VBG HCO3 VBG Base Excess Sodium Potassium Chloride Carbon Dioxide Anion Gap BUN Creatinine Estimated GFR BUN/Creatinine Ratio Glucose Calculated Osmolality Calcium Total Bilirubin AST ALT Alkaline Phosphatase CK-MB (CK-2) Troponin I < 0.012 Total Protein Albumin Globulin Albumin/Globulin Ratio Triglycerides Cholesterol LDL Cholesterol, Calc VLDL Cholesterol HDL Cholesterol Cholesterol/HDL Ratio TSH Free T4 Patient Problems - Patient Problem List (1) Coronary artery disease Current Visit: Yes Status: Acute Code(s): I25.10 - Atherosclerotic heart disease of [place] coronary artery without angina pectoris Qualifiers: Coronary Disease-Associated Artery/Lesion type: [place] artery [place] vs. transplanted heart: [place] heart Associated angina: with unstable angina Qualified Code(s): I25.110 - Atherosclerotic heart disease of [place] coronary artery with unstable angina pectoris Category: Medical (2) Chest pain Current Visit: Yes Status: Acute Code(s): R07.9 - Chest pain, unspecified Qualifiers: Chest pain type: chest pain on breathing Qualified Code(s): R07.1 - Chest pain on breathing; R07.81 - Pleurodynia Category: Medical (3) Hypertension Current Visit: Yes Status: Acute Code(s): I10 - Essential (primary) hypertension Qualifiers: Hypertension type: essential hypertension Qualified Code(s): I10 - Essential (primary) hypertension Category: Medical (4) Obesity Current Visit: Yes Status: Acute Code(s): E66.9 - Obesity, unspecified Qualifiers: Obesity type: unspecified obesity type Obesity classification: adult class 3 (BMI >= 40) Serious obesity comorbidity presence: with serious comorbidity Body mass index: BMI 40.0-44.9 Qualified Code(s): E66.01 - Morbid (severe) obesity due to excess calories; Z68.41 - Body mass index (BMI) 40.0-44.9, adult Category: Medical (5) Hypertriglyceridemia Current Visit: Yes Status: Acute Code(s): E78.1 - Pure hyperglyceridemia Category: Medical (6) Hypothyroidism Current Visit: Yes Status: Acute Code(s): E03.9 - Hypothyroidism, unspecified Qualifiers: Hypothyroidism type: acquired Qualified Code(s): E03.9 - Hypothyroidism, unspecified Category: Medical
[2019-06-03] MEDS ORDERED: CLOPIDOGREL BISULFATE 300 MG TABLET PO ONE (17:02)
--- NOTE | 2019-06-03 21:55 | DI ---
MRI MRA Neck WO Contrast,06/02/2019 3:43 PM: Clinical History: Expressive dysphasia Previous Exam: None at this facility. Findings: Multiplanar MR images are obtained through the neck following a 2-D [id number] protocol. The vertebral arteries are normal. The common carotid artery is normal. There is mild disease within the carotid bulbs bilaterally. Ther e is less than 50% stenosis of the internal carotid arteries bilaterally. The basilar artery is normal. The carotid siphons are normal. Impression: Mild peripheral vascular disease within the carotid bulbs bilaterally without hemodynamically signifi cant stenosis.
--- NOTE | 2019-06-03 21:56 | DI ---
2 DAY LEXISCAN STRESS & REST MYOCARDIAL PERFUSION SCANS, 06/02/2019-06/03/2019: Clinical History: Chest pain. Known coronary artery disease with stent. Previous Exam: None at this facility. Monitoring Physician: Dr. Jose Alfredo Pan. Dose: Stress dose: 37 mCi on 06/02/2019. Rest dose: 37 mCi on 06/03/2019. Quantitative Analysis: [id number] program without and with low dose limited CT chest scan attenuati on correction. Exam Quality: Excellent. Rejected Beats: Stress = 1%; Rest = 0%. HR: Stress = 69-73 b/m; Rest = 65-7 0 b/m. Left Ventricular Chamber Sizes: Normal at stress and rest. Transient Ischemic Dilatation Ratio: 1.26. Normal Nicholas TID <= 1.22; normal Lexiscan TID <= 1.33. LVEF: Stress: 53%. Rest: 54%. Myocardial Perfusion: Fixed defect in the lateral wall from apex to base and a fixed defect in the ap ical septal region with a reversible defect in the septobasal segment. Myocardial Wall Motion: Mild hypokinesis at stress and rest in the lateral wall and septum. Myocardial Thickening: Decreased thickening in the lateral wall and the anteroseptal region. Coronary Artery Calcifications: There is a very dense metallic or calcific density in the midportion of the left circumflex artery. Lungs: No lung nodules or enlarged nodes. Readin. Normal stress and rest left ventricular chamber size with normal transient ischemic dilatation ra felipa of 1.26. 2. Stress and rest LVEF values of 53% and 54%, respectively. 3. Reversible defect indicating ischemia in the septobasal region with hypokinesis in the septum. Fi xed defect in the lateral wall with hypokinesis at stress and rest. 4. Stent versus very dense calcifications in the midportion of the left circumflex artery. 5. No lung nodules or adenopathy.
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
== END 2019-06-03 17:46 | disposition short-term general hospital (02) ==
LOC: MED/SURG 20:10 → ER 20:10 → MED/SURG 22:13
PROVIDERS: ADMIT Family Medicine; ATTEND Family Medicine